=== PATIENT | male | born 1940 ===

== ENCOUNTER 2018-05-08 10:02 | Day surgery (SDC) | payer MEDICARE, SELFPAY ==
[2018-05-08 12:10] VITALS: BP 152/76; PULSE 58; RESP 15; TEMP 36.2; O2SAT 97; BMI 28.2
[2018-05-08] MEDS: PROPARACAINE 0.5% OPHTH SOL 2 DROPS EYE-OP (12:24)
[2018-05-08] MEDS: CATARACT EYE COMPOUND (10 DROPS/SYRINGE) 3 DROPS EYE-OP (12:25)
--- NOTE | 2018-05-08 12:32 | SUR.PREOP ---
PT REPORTS GOING HOME VIA [email or web address]. DR. NAM AWARE AND VERBAL ORDER RECEIVED OK FOR PT TO GO VIA [facility].
--- NOTE | 2018-05-08 12:57 | P.OP_ITS ---
Operative Date/Time/Diagnoses Pre-op diagnosis: Nuclear Cataract Left eye Post-op diagnosis: same Procedure & Clinicians Surgeon: Ranjeet Tellez Anesthesia Type: MAC +/- and Sedation Operative Notes Procedure in detail: Patient brought to the operating suite. Tetracaine drops placed in the left eye. Patient was prepped and draped in sterile manner. Wire lid speculum was placed in the eye. Betadine drops were placed on the eye. This was irrigated. Lidocaine jelly was placed on the eye. A paracentesis port was created with a side-port blade. 0.1 mL 1% preservative free lidocaine was injected into the anterior chamber. The anterior chamber was deepened with viscoelastic. 2.6 mm keratome was used to create a temporal clear corneal incision. Cystotome and Utrata forceps were used to create continuous tear capsulorrhexis. Balanced salt solution was used to hydro dissect the nucleus. The phacoemulsification handpiece was inserted and the nucleus was removed using the stop and chop technique. The irrigation aspiration handpiece was inserted and the remaining cortex was removed. Anterior chamber was deepened with viscoelastic. An Sanchez ZCB00 intraocular lens with a power of 23.0 was injected into the capsular bag. Irrigation aspiration handpiece was inserted and the remaining viscoelastic was removed. Incision was hydrated with balanced salt solution and found to be leak free with pressure with Weck- Safia sponges. 0.1 mL Vigamox injected anterior chamber. 0.3 mL Kenalog 10 mg was injected subconjunctivally. Lid speculum was removed. The patient left the operating room in excellent condition. Complications: none Condition: stable Disposition: same day surgery
--- NOTE | 2018-05-08 12:57 | PM.PREOP ---
Pre-operative Note Interval Note History & Physical reviewed/Exam performed by Physician: No Changes to H&P: No
[2018-05-08] MEDS: PHENYLEPHRINE/LIDOCAINE VIAL (OR) 0.2 ML EYE-OP (13:18)
[2018-05-08] MEDS: MOXIFLOXACIN OPHTH DROPS 3 ML BOTTLE 2 DROPS INJ (13:19)
[2018-05-08] MEDS: LIDOCAINE JELLY 2% 5 ML 1 APPLIC TOP (13:19)
[2018-05-08] MEDS: TRIAMCINOLONE 50 MG/5 ML VIAL INJ (13:19)
[2018-05-08] MEDS: CHONDROIDTIN/SOD HYALURONATE 1.05 ML SYRINGE INTRAOCULA (13:19)
[2018-05-08] MEDS: BALANCED SALT IRRIG SOLN NO.2 500 ML, EPINEPHrine 1 MG IRR (13:20)
[2018-05-08] MEDS: TETRACAINE 0.5% OPHTH DROPS 15 ML 2 DROPS EYE-LEFT (13:20)
[2018-05-08 13:33] VITALS: BP 141/77; PULSE 61; RESP 15; TEMP 36; O2SAT 98
[2018-05-08 13:50] VITALS: BP 148/75; PULSE 61; RESP 15; TEMP 36.3; O2SAT 97
--- NOTE | 2018-05-08 14:02 | SUR.PHASEII ---
Dr. Grant and Dr. Tellez aware of [place] Per [place] doctors, ok [place]. Pt discharged out of facility in stable condition, vss.
== END 2018-05-08 13:59 ==
LOC: OR 10:10
PROVIDERS: PCP Family Medicine; Visit Provider Ophthalmology
DX: H25.12 Age-related nuclear cataract, left eye (principal)
CPT/HCPCS: J0171; J2250; J3010; J3301